=== PATIENT | male | born 1980 | race Caucasian/White ===

== ENCOUNTER → 2021-06-22 10:40 | Outpatient (BNVA) | payer MEDICAID, SELFPAY | PROVIDERS: Visit Provider Nurse Practitioner Family | DX: G62.9 Polyneuropathy, unspecified (principal) | CPT/HCPCS: 80053; 85025 ==

== ENCOUNTER → 2021-08-24 14:39 | Outpatient (BNVA) | payer MEDICAID, SELFPAY | PROVIDERS: Visit Provider Nurse Practitioner Family | DX: M79.602 Pain in left arm (principal); M79.89 Other specified soft tissue disorders; Z98.890 Other specified postprocedural states | CPT/HCPCS: 73090; 73110 ==

== ENCOUNTER 2021-09-22 16:15 | Emergency (ER) | payer MEDICAID, SELFPAY ==
[2021-09-22 16:31] VITALS: BP 168/104; PULSE 91; RESP 18; TEMP 36.4; O2SAT 99; BMI 29.8
--- NOTE | 2021-09-22 17:09 | W.ED.HA ---
HPI - Headache General: Chief Complaint: Headache Stated Complaint: Headache with dizziness Time Seen by Provider: 09/22/21 16:51 Source: patient and family (spouse) Mode of arrival: ambulatory Limitations: no limitations History of Present Illness: This patient presents to our emergency department [place] by his spouse. He states he has had a migraine headache now for over 2 days. He states the headache came on in a gradual fashion and has built over many hours and has persisted. He states he has tried [id number] migraine medicines without much improvement. He states he has had vomiting today with this headache. He states that he has had a history of migraine headaches in the past but has not had one for some time. He states that again it did not come on suddenly but gradually built over hours. He denies any numbness, weakness, change in vision, difficulty with speech, sensation or movement. He denies head trauma. He denies fevers. He states that he does not have any known migraine triggers in the past. He has a history of seasonal allergies and takes antihistamine for that condition. He does not smoke tobacco and rarely drinks alcohol. No ongoing associated symptoms at this time. He states he is otherwise in good health has not had recent upper respiratory infections, fevers, etc. MD elicited complaint: headache and migraine Pertinent past history: migraines Onset description: gradually Location: frontal, temporal and band-like Severity: similar to previous episodes Quality & Timing: throbbing and squeezing Context: occurred at rest Associated symptoms: Reports photophobia and vomiting; Deny chest pain, confusion, fever(s) or rash Treatments prior to arrival: ibuprofen Review of Systems Const: Denies: fever(s), chills or body aches Eyes: Reports: photophobia; Denies: change in vision, blurry vision or seeing flashes ENMT: Reports: nasal congestion; Denies: throat pain, odynophagia, hoarseness, change in hearing, disequilibrium or nasal obstruction Card: Denies: chest pain, palpitations or irregular heart rhythm Resp: Denies: dyspnea or productive cough GI: Reports: vomiting; Denies: abdominal pain or dysphagia : Denies: flank pain, difficulty urinating, dysuria or urinary frequency Musc: Denies: neck pain, back pain, extremity pain or extremity swelling Skin/Breast: Denies: rash Neuro: Reports: headache(s); Denies: numbness in extremities, weakness in extremities, frequent falls, dizziness, confusion, Slurred speech present or seizure-like activity Psych: Denies: anxiety, depression, mood swings or panic attacks Endo: Denies: polyuria or polydipsia Thai/Lymph: Denies: easy bruising or easy bleeding All/Imm: Denies: urticaria PFSH ED PFSH: Social History Smoking and tobacco status: never smoked Physical Exam Narrative: EXAM NARRATIVE: Patient is alert but appears somewhat uncomfortable. He is sitting in a darkened room he is able to communicate in full sentences which are goal-directed. Const: COMMON NORMALS: patient oriented x3 and alert GENERAL APPEARANCE: cooperative HENMT: COMMON NORMALS: normocephalic, atraumatic, TM's normal bilaterally, Normal external nose present, Normal nasal mucous membranes and turbinates present, moist oral mucous membranes, oropharynx normal and dentition normal HEAD & SCALP: normocephalic and atraumatic; no scalp tenderness and no Temporal artery tenderness present FACE & SINUS: sinuses nontender and face symmetric NOSE: Normal external nose present and Normal nasal mucous membranes and turbinates present TYMPANIC MEMBRANE: TM's normal bilaterally Eye: COMMON NORMALS: Equal, round and reactive pupils present, EOMs intact bilaterally, conjunctivae normal and no scleral icterus CONJUNCTIVA: Yes conjunctivae normal PUPIL: Yes Equal, round and reactive pupils present DIRECT OPHTHALMOSCOPY: Yes photophobia Neck/C-Spine: COMMON NORMALS: full ROM, no lymphadenopathy, supple, no meningeal signs, no JVD and No carotid bruits Lymph: LYMPHATIC: no lymphadenopathy noted Chest: COMMONS NORMALS: normal inspection of the chest Resp: COMMON NORMALS: normal respiratory effort and clear to auscultation bilaterally AUSCULTATION: clear to auscultation bilaterally Cardio: COMMON NORMALS: no JVD, regular rate, regular rhythm, No murmurs present (Cardio) and Peripheral pulses 2+ throughout RATE: regular rate RHYTHM: regular rhythm PERIPHERAL PULSES: Peripheral pulses 2+ throughout GI: COMMON NORMALS: Normal to inspection, nondistended, normoactive bowel sounds present : COMMON NORMALS: Yes no CVA tenderness BLADDER/KIDNEY EXAM: Yes no CVA tenderness Back/Pelvis: COMMON NORMALS: no CVA tenderness, thoracic and lumbar spine normal to inspection, no thoracic nor lumbar tenderness, thoraco-lumbar ROM normal and straight leg raise negative bilaterally Extremity: COMMON NORMALS: normal to inspection, full ROM, capillary refill normal, no joint enlargement, no calf tenderness and no pedal edema Neuro: COMMON NORMALS: patient oriented x3, moves all extremities, no focal motor deficits, no sensory deficits noted and gait normal SENSORIUM/ORIENTATION: Yes alert MENINGEAL SIGNS: Yes no meningeal signs CRANIAL NERVES: Yes CN normal except as noted Psych: COMMON NORMALS: mental status grossly normal and Normal thought process present THOUGHT PROCESS: Normal thought process present Skin: COMMON NORMALS: no rashes or lesions noted and turgor normal GENERAL SKIN EXAM: no rashes or lesions noted and turgor normal Course Reevaluation(s): Reevaluation #1: Patient states he has had no improvement with Reglan x2 as well as Benadryl and Decadron. He states that the last time he had a headache like this they went through several processes similar to this and wound up giving him analgesics. Looking at his medication list is somewhat revealing. Vital Signs: Vital signs: Vital Signs Temperature 97.6 F 09/22/21 16:31 Pulse Rate 84 09/22/21 19:00 Respiratory Rate 16 09/22/21 19:00 Blood Pressure 170/83 09/22/21 19:00 Pulse Oximetry 95 09/22/21 19:00 [facility] - Headache Medical Decision Making Patient here with migraine headache. His clinical picture and examination do not suggest a worrisome secondary headache. He got minimal if any relief from the usual treatment for migraines. We were had to resort to giving him opiates which I am not in favor. We will go ahead and plan on discharge to home. I will provide a prescription for tizanidine to use for continued treatment. Again he is stable without any findings to suggest worrisome etiology to his headache at this time. Return precautions were discussed. Discharge Plan Discharge Patient Disposition: Home Clinical Impression: Headache Condition: Stable Prescriptions: New tizanidine 4 mg tablet 4 mg PO Q12H PRN (Reason: headache) Qty: 14 0RF No Action sulfamethoxazole-trimethoprim [Bactrim DS] 800-160 mg tablet 1 tab PO BID 10 Days Qty: 20 0RF gabapentin 100 mg capsule 100 mg PO TID 30 Days Qty: 90 0RF Narcan 4 mg/actuation spray,non-aerosol 4 mg intranasal Q2M PRN (Reason: opioid overdose) Qty: 2 0RF Rx Instructions: spray 1 dose into ONE nostril; alternate nostrils w each dose until help arrives hydrocodone-acetaminophen 5-325 mg tablet 1 tab PO TID PRN (Reason: pain) 7 Days Qty: 21 0RF Discharge Orders: Discharge ED (Routine); Ordered 09/22/21 Ordered By: Ventura Marlow Discharge Diet: Usual diet Discharge Activity: Resume usual activity Patient Instructions: Opioid Safety Activity Restrictions/Additional Instructions: We have provided prescription that she may use should you have any recurrence of your headache. Take 1 to 2 tablets at bedtime as needed for your headache. Follow-up with your regular doctor for additional medications or alternative treatments as indicated. Should you have persistent, new or worsening symptoms return to this or the nearest emergency department. 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
[2021-09-22] MEDS: metoclopramide 5 mg/mL SDV 2 mL 10 MG IVP ×2 (17:24→18:08)
[2021-09-22] MEDS: dexamethasone 10 mg/mL INJ IVP (17:24)
[2021-09-22] MEDS: diphenhydrAMINE 50 mg/mL SDV 1mL 25 MG IVP (17:25)
[2021-09-22] MEDS: sodium chloride 0.9% 1,000 ML 999 ML IV (17:26)
[2021-09-22] MEDS: HYDROmorphone 1 mg/mL INJ 1 mL IVP ×2 (18:59→19:31)
[2021-09-22 19:00] VITALS: BP 170/83; PULSE 84; RESP 16; O2SAT 95
[2021-09-22 19:31] VITALS: BP 143/78; PULSE 78; RESP 16; O2SAT 95
== END 2021-09-22 19:43 | disposition home or self-care (01) ==
PROVIDERS: Emergency Provider Emergency Medicine
DX: R51.9 Headache, unspecified (principal)
CPT/HCPCS: 96361; 96374; 96375; 96376; 99284; J1100; J1170; J1200; J2765; J7030

== ENCOUNTER 2022-01-13 15:44 | Emergency (ER) | payer MEDICAID, SELFPAY ==
[2022-01-13 15:49] VITALS: BP 152/109; PULSE 77; RESP 18; TEMP 36.7; O2SAT 98
--- NOTE | 2022-01-13 16:29 | ED_ITS ---
HPI - Headache General: Chief Complaint: Headache Stated Complaint: Headache Time Seen by Provider: 01/13/22 16:10 Source: patient Mode of arrival: ambulatory Limitations: no limitations History of Present Illness: 41-year-old male who states he had a headache that started yesterday morning. He states that pain is sharp in nature rates an 8 out of 10. He states he had previous headaches that were the same as this denies this being the worst headache of his life states that gradually worsening it was not a sudden onset headache denies any fever denies any worsening improving factors. Associated symptoms: Deny chest pain, fever(s), nausea, rash or vomiting Review of Systems Const: Denies: fever(s), chills, body aches or change in appetite Eyes: Denies: blurry vision or eye discomfort ENMT: Denies: throat pain or dental pain Card: Denies: chest pain Resp: Denies: dyspnea GI: Denies: abdominal pain, nausea, vomiting or diarrhea : Denies: dysuria Musc: Denies: neck pain or back pain Skin/Breast: Denies: rash Neuro: Reports: headache(s) Psych: Denies: depression Thai/Lymph: Denies: easy bruising All/Imm: Denies: urticaria PFSH ED PFSH: Surgical History (Updated 01/13/22 @ 16:34 by Elena Wiggins MD) History of carpal tunnel surgery of left wrist Social History Smoking and tobacco status: never smoked Physical Exam Const: COMMON NORMALS: no acute distress, patient oriented x3 and healthy appearing HENMT: COMMON NORMALS: normocephalic and atraumatic HEAD & SCALP: normocephalic and atraumatic Eye: COMMON NORMALS: Equal, round and reactive pupils present and EOMs intact bilaterally PUPIL: Yes Equal, round and reactive pupils present Neck/C-Spine: COMMON NORMALS: full ROM and supple Chest: COMMONS NORMALS: normal inspection of the chest and normal palpation of entire chest wall Resp: COMMON NORMALS: normal respiratory effort, No retractions, No use of a ccessory muscles and clear to auscultation bilaterally AUSCULTATION: clear to auscultation bilaterally Cardio: COMMON NORMALS: regular rate, regular rhythm and No murmurs present (Cardio) RATE: regular rate RHYTHM: regular rhythm GI: COMMON NORMALS: Normal to inspection, nondistended, normoactive bowel sounds present, Soft to palpation, non-tender and no masses PALPATION: Yes Soft to palpation Extremity: COMMON NORMALS: normal to inspection and full ROM Neuro: COMMON NORMALS: patient oriented x3, moves all extremities and no focal motor deficits Psych: COMMON NORMALS: mental status grossly normal, Normal thought process present and cooperative THOUGHT PROCESS: Normal thought process present Skin: COMMON NORMALS: no rashes or lesions noted and no wounds GENERAL SKIN EXAM: no rashes or lesions noted Course Vital Signs: Vital signs: Vital Signs Temperature 98.0 F 01/13/22 15:49 Pulse Rate 77 01/13/22 15:49 Respiratory Rate 18 01/13/22 15:49 Blood Pressure 152/109 01/13/22 15:49 Pulse Oximetry 98 01/13/22 15:49 MDM - Headache Medical Decision Making Patient presents here with a headache that is consistent with his previous headaches she has no signs of subarachnoid hemorrhage or meningitis patient was given IM morphine Reglan Benadryl stable for discharge is to follow-up with PCP and return if worsening. Discharge Plan Discharge Patient Disposition: Home Clinical Impression: Headache Qualifiers: Headache type: unspecified Headache chronicity pattern: unspecified pattern Intractability: not intractable Qualified Code(s): R51.9 - Headache, unspecified Condition: Stable Prescriptions: No Action atorvastatin 20 mg tablet 20 mg PO DAILY 0RF ondansetron 4 mg tablet,disintegrating 4 mg PO Q6H PRN (Reason: nausea and vomiting) Qty: 20 0RF Narcan 4 mg/actuation spray,non-aerosol 4 mg intranasal Q2M PRN (Reason: opioid overdose) Qty: 2 0RF Rx Instructions: spray 1 dose into ONE nostril; alternate nostrils w each dose until help arrives Discharge Orders: Discharge ED (Routine); Ordered 01/13/22 Ordered By: Elena Wiggins Discharge Diet: Advance as tolerated Discharge Activity: Resume usual activity Patient Instructions: Migraine Headache (ED) 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
[2022-01-13] MEDS: metoclopramide 5 mg/mL SDV 2 mL 10 MG IM (16:46)
[2022-01-13] MEDS: diphenhydrAMINE 50 mg/mL SDV 1mL IM (16:46)
[2022-01-13] MEDS: morphine 4 mg/mL SDV 1 mL IM (16:47)
== END 2022-01-13 16:47 | disposition home or self-care (01) ==
PROVIDERS: Emergency Provider Emergency Medicine
DX: R51.9 Headache, unspecified (principal)
CPT/HCPCS: 96372; 99284; J1200; J2270; J2765

== ENCOUNTER 2022-03-28 14:10 | Emergency (ER) | payer MEDICAID, SELFPAY ==
[2022-03-28] VITALS (8 sets, daily range): BP systolic 130–179; BP diastolic 95–118; PULSE 78–103; RESP 14–20; TEMP 36.4; O2SAT 95–100; BMI 27.8
--- NOTE | 2022-03-28 14:19 | ECG_ITS ---
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 Measurements Intervals [place] Rate: 87 P: 40 MD: 163 QRS: 15 QRSD: 89 T: 52 QT: 361 QTc: 436 Interpretive Statements SINUS RHYTHM POSSIBLE LEFT ATRIAL ENLARGEMENT [-0.1mV P-WAVE IN V1/V2] LOW QRS VOLTAGE IN PRECORDIAL LEADS [QRS DEFLECTION < 1.0 mV IN CHEST LEADS] SEPTAL MYOCARDIAL INFARCTION , PROBABLY OLD [40+ ms Q WAVE IN V1/V2] No previous ECG available for comparison Electronically Signed On 03-28-2022 20:45:23 CDT by Cary Smith M.D. [id number]
--- NOTE | 2022-03-28 14:29 | XR_ITS ---
WS: [id number] Portable AP upright chest, 03/28/2022 Clinical Data: cp Comparison: Portable chest, 07/25/2007. Findings: No nodules, masses or effusions are seen. The heart is normal. The pulmonary vascularity is not increased. No pneumonia or pneumothorax is seen. Monitor leads are on the chest wall. XR/XR chest 1V portable [id number] Impression: Negative chest.
[2022-03-28 14:46] LABS: Basophils # 0.1 10^3/uL (0.0-0.1); Basophils % 1.7 %; Eosinophils # 1.1 10^3/uL (0.0-0.8); Hematocrit 49.8 % (42.0-52.0); Hemoglobin 17.1 g/dL (11.7-16.6); Lymphocytes # 1.6 10^3/uL (0.8-4.8); Lymphocytes % 25.1 %; Mean Corpuscular HGB Conc 34.3 g/dL (30.0-36.0); Mean Corpuscular Hemoglobin 29.6 pg (28.0-34.0); Mean Corpuscular Volume 86.3 fl (80-94); Monocytes # 0.5 10^3/uL (0.2-0.9); Monocytes % 7.5 %; Neutrophils % 48.2 %; Nucleated Red Blood Cells % 0 %; Platelet Count 395 10^3/cmm (130-400); Red Blood Count 5.77 10^6/uL (4.1-5.3); Red Cell Distribution Width 13.2 % (12.1-15.1); White Blood Count 6.4 10^3/uL (4.0-10.0)
--- NOTE | 2022-03-28 14:46 | ED_ITS ---
HPI - Chest Pain General: Chief Complaint: Chest Pain Stated Complaint: chest/right side pain Time Seen by Provider: 03/28/22 14:28 Source: patient Mode of arrival: ambulatory Limitations: no limitations History of Present Illness: 41-year-old male states he been having chest pain over the last 2 to 3 hours states she had a pressure type pain in the center of his chest with some nausea states he had some numbness down his left arm. History of high blood pressure and high cholesterol he is not a smoker denies any known history of heart disease he does have family history of disease states his pain is currently 3 out of 10 denies any worsening improving factors. Associated symptoms: Deny abdominal pain, dyspnea, fever(s), nausea or vomiting Review of Systems Const: Denies: fever(s), chills, body aches or change in appetite Eyes: Denies: blurry vision or eye discomfort ENMT: Denies: throat pain or dental pain Card: Reports: chest pain Resp: Denies: dyspnea GI: Denies: abdominal pain, nausea, vomiting or diarrhea : Denies: dysuria Musc: Denies: neck pain or back pain Skin/Breast: Denies: rash Neuro: Denies: headache(s) Psych: Denies: depression Thai/Lymph: Denies: easy bruising All/Imm: Denies: urticaria PFSH ED PFSH: Surgical History History of carpal tunnel surgery of left wrist Social History Smoking and tobacco status: never smoked Physical Exam Const: COMMON NORMALS: no acute distress, patient oriented x3 and healthy appearing HENMT: COMMON NORMALS: normocephalic and atraumatic HEAD & SCALP: normocephalic and atraumatic Eye: COMMON NORMALS: Equal, round and reactive pupils present and EOMs intact bilaterally PUPIL: Yes Equal, round and reactive pupils present Neck/C-Spine: COMMON NORMALS: full ROM and supple Chest: COMMONS NORMALS: normal inspection of the chest and normal palpation of entire chest wall Resp: COMMON NORMALS: normal respiratory effort, No retractions, No use of accessory muscles and clear to auscultation bilaterally AUSCULTATION: clear to auscultation bilaterally Cardio: COMMON NORMALS: regular rate, regular rhythm and No murmurs present (Cardio) RATE: regular rate RHYTHM: regular rhythm GI: COMMON NORMALS: Normal to inspection, nondistended, normoactive bowel sounds present, Soft to palpation, non-tender and no masses PALPATION: Yes Soft to palpation Extremity: COMMON NORMALS: normal to inspection and full ROM Neuro: COMMON NORMALS: patient oriented x3, moves all extremities and no focal motor deficits Psych: COMMON NORMALS: mental status grossly normal, Normal thought process present and cooperative THOUGHT PROCESS: Normal thought process present Skin: COMMON NORMALS: no rashes or lesions noted and no wounds GENERAL SKIN EXAM: no rashes or lesions noted Course Vital Signs: Vital signs: Vital Signs Temperature 97.6 F 03/28/22 14:11 Pulse Rate 86 03/28/22 18:00 Respiratory Rate 18 03/28/22 18:16 Blood Pressure 157/97 03/28/22 18:00 Pulse Oximetry 98 03/28/22 18:16 Oxygen Delivery Me thod 03/28/22 18:00 MDM - Chest Pain Medical Decision Making Patient presents for chest pain his initial and repeat troponins here are normal. He is well-appearing here no signs of acute coronary syndrome no signs of dissection or pulmonary embolism he is stable for discharge we will get him follow-up with cardiology he is return if worsening he understands agrees to plan. Lab Data : 03/28/22 11:40 03/28/22 11:40 Radiology Impressions Chest X-Ray 03/28/22 14:29 Impression: Negative chest. Laboratory Results WBC 6.4 10^3/uL (4.0-10.0) 03/28/22 11:40 RBC 5.77 10^6/uL (4.1-5.3) H 03/28/22 11:40 Hgb 17.1 g/dL (11.7-16.6) H 03/28/22 11:40 Hct 49.8 % (42.0-52.0) 03/28/22 11:40 MCV 86.3 fl (80-94) 03/28/22 11:40 MCH 29.6 pg (28.0-34.0) 03/28/22 11:40 MCHC 34.3 g/dL (30.0-36.0) 03/28/22 11:40 RDW 13.2 % (12.1-15.1) 03/28/22 11:40 Plt Count 395 10^3/cmm (130-400) 03/28/22 11:40 MPV 9.0 fL (7.4-10.4) 03/28/22 11:40 Neut % (Auto) 48.2 % 03/28/22 11:40 Lymph % (Auto) 25.1 % 03/28/22 11:40 [place] % (Auto) 7.5 % 03/28/22 11:40 Eos % (Auto) 17.0 % 03/28/22 11:40 Baso % (Auto) 1.7 % 03/28/22 11:40 Neut # (Auto) 3.10 10^3/uL (1.8-7.7) 03/28/22 11:40 Lymph # (Auto) 1.6 10^3/uL (0.8-4.8) 03/28/22 11:40 [place] # (Auto) 0.5 10^3/uL (0.2-0.9) 03/28/22 11:40 Eos # (Auto) 1.1 10^3/uL (0.0-0.8) H 03/28/22 11:40 Baso # (Auto) 0.1 10^3/uL (0.0-0.1) 03/28/22 11:40 Nucleated RBC % (auto) 0 % 03/28/22 11:40 Nucleated RBCs # 0.0 /100WBC 03/28/22 11:40 Sodium 134 mmol/L (136-145) L 03/28/22 11:40 Potassium 4.7 mmol/L (3.5-5.1) 03/28/22 11:40 Chloride 100 mmol/L (98-107) 03/28/22 11:40 Carbon Dioxide 24 mmol/L (22-29) 03/28/22 11:40 Anion Gap 14.7 (5-19) 03/28/22 11:40 BUN 12 mg/dL (6-20) 03/28/22 11:40 Creatinine 1.0 mg/dL (0.7-1.2) 03/28/22 11:40 GFR Calculation 82.8 mL/min (90-130) L 03/28/22 11:40 Glucose 125 mg/dL (65-115) H 03/28/22 11:40 Calculated Osmolality 279 mOsm/kg (285-295) L 03/28/22 11:40 Calcium 9.4 mg/dL (8.5-10.5) 03/28/22 11:40 Total Bilirubin 0.2 mg/dL (0.15-1.2) 03/28/22 11:40 AST 24 U/L (0-40) 03/28/22 11:40 ALT 52 U/L (0-41) H 03/28/22 11:40 Alkaline Phosphatase 109 U/L (40-130) 03/28/22 11:40 Troponin T Baseline 10 ng/L (0-15) 03/28/22 11:40 Troponin T 120 Minute 6.00 ng/L (0-15) 03/28/22 17:19 Delta Troponin T -4.00 ABS# (0-10) L 03/28/22 17:19 Total Protein 7.4 g/dL (6.6-8.7) 03/28/22 11:40 Albumin 4.4 g/dL (3.5-5.2) 03/28/22 11:40 Globulin 3.0 g/dL (1.3-4.6) 03/28/22 11:40 Lipase 59 U/L (13-60) 03/28/22 11:40 EKG Data EKG 1: I personally reviewed and interpreted this EKG as follows: EKG interpretation date: 03/28/22 EKG interpretation time: 14:21 Interpretation: nsr with no st or t wave abnormalities qrs 89 qtc 406 EKG 2: I personally reviewed and interpreted this EKG as follows: EKG interpretation date: 03/28/22 EKG interpretation time: 14:56 Interpretation: nsr hr [address] or t wave abnormalities qrs 91 qtc 405 Discharge Plan Discharge Patient Disposition: Home Clinical Impression: Chest pain Condition: Stable Prescriptions: New hydrocodone-acetaminophen 5-325 mg tablet 1 tab PO Q6H PRN (Reason: pain) Qty: 14 0RF ondansetron 4 mg tablet,disintegrating 4 mg PO Q6H PRN (Reason: nausea and vomiting) Qty: 14 0RF No Action Narcan 4 mg/actuation spray,non-aerosol 4 mg intranasal Q2M PRN (Reason: opioid overdose) Qty: 2 0RF Rx Instructions: spray 1 dose into ONE nostril; alternate nostrils w each dose until help arrives atorvastatin 40 mg tablet 40 mg PO BEDTIME valsartan 160 mg tablet 160 mg PO DAILY Discharge Orders: Discharge ED (Routine); Ordered 03/28/22 Ordered By: Elena Wiggins Referrals: Jerri Schneider MD [Physician] - 1-3 days Discharge Diet: Advance as tolerated Discharge Activity: Resume usual activity Patient Instructions: Chest Pain (ED) Coding Level 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
[2022-03-28] MEDS: aspirin 81 mg Chew Tablet 324 MG PO (14:51)
[2022-03-28] MEDS: nitroglycerin 0.4 mg sublingual Tablet SUBLINGUAL (14:51)
--- NOTE | 2022-03-28 14:56 | ECG_ITS ---
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 Measurements Intervals [place] Rate: 93 P: 68 AR: 166 QRS: 92 QRSD: 91 T: 55 QT: 354 QTc: 441 Interpretive Statements SINUS RHYTHM BORDERLINE RIGHT AXIS DEVIATION [QRS AXIS > 90] SEPTAL MYOCARDIAL INFARCTION , OF INDETERMINATE AGE [40+ ms Q WAVE IN V1/V2] INTERPRETATION BASED ON A DEFAULT AGE OF 40 YEARS Compared to ECG 03/28/2022 14:21:43 No significant changes Electronically Signed On 03-28-2022 20:50:13 CDT by Cary Smith M.D. [id number]
[2022-03-28 15:10] LABS: Troponin(5th) Baseline 10 ng/L (0-15)
[2022-03-28 15:11] LABS: Alanine Aminotransferase 52 U/L (0-41); Albumin Level 4.4 g/dL (3.5-5.2); Alkaline Phosphatase 109 U/L (40-130); Anion Gap 14.7 (5-19); Aspartate Amino Transferase 24 U/L (0-40); Blood Urea Nitrogen 12 mg/dL (6-20); Calcium 9.4 mg/dL (8.5-10.5); Carbon Dioxide 24 mmol/L (22-29); Chloride 100 mmol/L (98-107); Creatinine Clr Calc Pharmacy 116.3256; Glomerular Filtration Rate 82.8 mL/min (90-130); Glucose 125 mg/dL (65-115); Osmolality Calculated 279 mOsm/kg (285-295); Potassium 4.7 mmol/L (3.5-5.1); Sodium 134 mmol/L (136-145); Total Bilirubin 0.2 mg/dL (0.15-1.2); Total Protein 7.4 g/dL (6.6-8.7)
[2022-03-28] MEDS: ondansetron 2 mg/ML SDV 2 mL 4 MG IVP (16:04)
[2022-03-28] MEDS: HYDROmorphone 1 mg/mL INJ 1 mL 0.5 MG IVP ×2 (16:07→18:16)
[2022-03-28 16:08] LABS: Lipase 59 U/L (13-60)
--- NOTE | 2022-03-28 17:17 | PC.NURSE ---
pt inquired if okay to eat, family brought outside food in. per physician, okay for pt to eat
--- NOTE | 2022-03-28 20:29 | ECG_ITS ---
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 Measurements Intervals [place] Rate: 85 P: 37 MN: 164 QRS: 40 QRSD: 102 T: 32 QT: 378 QTc: 450 Interpretive Statements SINUS RHYTHM POSSIBLE LEFT ATRIAL ENLARGEMENT [-0.1mV P-WAVE IN V1/V2] SEPTAL MYOCARDIAL INFARCTION , OF INDETERMINATE AGE [40+ ms Q WAVE IN V1/V2] Compared to ECG 03/28/2022 14:56:13 No significant changes Electronically Signed On 03-28-2022 20:50:40 CDT by Cary Smith M.D. [id number]
--- NOTE | 2022-03-29 09:57 | DCPLANNER ---
Addendum entered by Annmarie Madrid 06/27/22 10:42: Patient had a follow up appointment scheduled with heart care - patient did not attend appointment. Addendum entered by Annmarie Madrid 03/29/22 11:34: Patient has a follow up appointment scheduled for Friday, June 03, 2022 at 2:[address] Smith at [facility]. Clinic will call patient with appointment information. Original Note: atm manager had message to schedule a follow up appointment for patient with cardiology. atm manager sent patients information to the front office staff at [facility]. Patients information will be printed and reviewed. Clinic will call patient with appointment information.
== END 2022-03-28 16:25 | disposition home or self-care (01) ==
PROVIDERS: Emergency Provider Emergency Medicine
DX: R07.9 Chest pain, unspecified (principal)
CPT/HCPCS: 36415; 71045; 80053; 83690; 84484; 85025; 93005; 96374; 96375; 96376; 99285; J1170; J2405

== ENCOUNTER 2022-07-03 15:14 | Emergency (ER) | payer OTHER, SELFPAY ==
[2022-07-03 15:22] VITALS: BP 199/109; PULSE 90; RESP 16; TEMP 36.7; O2SAT 94; BMI 29.1
[2022-07-03 15:35] VITALS: BP 182/117; PULSE 97; RESP 16; O2SAT 97
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
[2022-07-03 16:19] VITALS: RESP 16
[2022-07-03] MEDS: ondansetron 2 mg/ML SDV 2 mL 4 MG IVP (16:19)
[2022-07-03] MEDS: morphine 4 mg/mL SDV 1 mL IVP ×2 (16:19→18:00)
[2022-07-03 16:43] VITALS: BP 172/78; PULSE 97; RESP 14; O2SAT 95
[2022-07-03 18:00] VITALS: RESP 16; O2SAT 95
== END 2022-07-03 18:46 | disposition home or self-care (01) ==
PROVIDERS: Emergency Provider Emergency Medicine; PCP Family Medicine
DX: S13.4XXA Sprain of ligaments of cervical spine, initial encounter (principal); S16.1XXA Strain of muscle, fascia and tendon at neck level, initial encounter; S29.012A Strain of muscle and tendon of back wall of thorax, initial encounter; I10 Essential (primary) hypertension; V89.2XXA Person injured in unspecified motor-vehicle accident, traffic, initial encounter
CPT/HCPCS: 70450; 72125; 72128; 96374; 96375; 96376; 99285; J2270; J2405

== ENCOUNTER 2022-11-25 12:06 | Emergency (ER) | payer OTHER, SELFPAY ==
[2022-11-25 12:07] VITALS: PULSE 113; RESP 16; TEMP 36.8; O2SAT 98; BMI 29.1
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
--- NOTE | 2022-11-25 12:17 | CT_ITS ---
WS: [id number] CT ABDOMEN PELVIS TECHNIQUE: Contrast-enhanced CT of the abdomen and pelvis with coronal and sagittal reformatted image s. CLINICAL INFORMATION: abd pain COMPARISON: None. DLP: 674.[address] scans at [facility] use at least one of these dose optimization techniques: automated e xposure control; mA and/or kV adjustment per patient size (includes targeted exams where dose is matc hed to clinical indication); or iterative reconstruction. FINDINGS: Lung bases are well aerated. Small noncalcified nodule RIGHT lower lobe laterally measuring 5 mm. Sli ght bibasilar atelectasis. Diffuse fatty infiltration of the liver. Prior cholecystectomy. Mild hepatomegaly. Normal GE junction . Spleen. Normal caliber abdominal aorta. No free fluid in the pelvis. Urine distended bladder. Adren al glands are normal. No hydronephrosis in either kidney. Normal pancreatic parenchymal enhancement. Normal portal vein and splenic vein. Normal sigmoid colon. Prior appendectomy clips. Normal lumbar spine. CT/CT abdomen pelvis w con* [id number] IMPRESSION: No acute traumatic findings abdomen or pelvis
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
--- NOTE | 2022-11-25 12:20 | CT_ITS ---
WS: [id number] CT CERVICAL TRAUMA TECHNIQUE: Noncontrast CT of the cervical spine with coronal and sagittal reformatted images. CLINICAL INFORMATION: Trauma COMPARISON: None. DLP: 1414.[address] scans at [facility] use at least one of these dose optimization techniques: automated e xposure control; mA and/or kV adjustment per patient size (includes targeted exams where dose is matc hed to clinical indication); or iterative reconstruction. FINDINGS: Straightening of the normal cervical lordosis. Mild cervical curve. Disc space narrowing worse at C6- C7 with anterior hypertrophic changes. Normal craniocervical junction. Normal C1-C2 articulation. Den s is normal in appearance. Normal occipital condyles. No high-grade spinal canal narrowing. Normal C1 ring. No evidence of acute fracture or dislocation. Normal prevertebral soft tissues. Mastoids air cells are well aerated. CT/CT cervical spin wo con* [id number] IMPRESSION: No evidence of acute fracture or dislocation.
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
[2022-11-25 12:30] VITALS: BP 136/81; PULSE 111; RESP 16; O2SAT 98
[2022-11-25] MEDS: sodium chloride 0.9% 1,000 ML 999 ML IV (12:31)
--- NOTE | 2022-11-25 12:33 | ECG_ITS ---
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 Measurements Intervals [place] Rate: 105 P: 48 IN: 152 QRS: 50 QRSD: 81 T: 52 QT: 325 QTc: 430 Interpretive Statements SINUS TACHYCARDIA SEPTAL MYOCARDIAL INFARCTION , OF INDETERMINATE AGE [40+ ms Q WAVE IN V1/V2] Compared to ECG 03/28/2022 18:04:47 Sinus rhythm no longer present Myocardial infarct finding still present Electronically Signed On 11-25-2022 16:27:49 CDT by Merlin Marc M.D. [id number]
--- NOTE | 2022-11-25 12:37 | PC.NURSE ---
PT PLACED IN C COLLAR
--- NOTE | 2022-11-25 12:37 | PC.NURSE ---
NO STEP OFF PALPATED.
[2022-11-25 13:02] LABS: Basophils # 0.1 10^3/uL (0.0-0.1); Basophils % 1.4 %; Eosinophils # 0.6 10^3/uL (0.0-0.8); Eosinophils % 6.5 %; Hematocrit 52.4 % (42.0-52.0); Lymphocytes # 1.6 10^3/uL (0.8-4.8); Lymphocytes % 18.8 %; Mean Corpuscular HGB Conc 34.4 g/dL (30.0-36.0); Mean Corpuscular Hemoglobin 29.2 pg (28.0-34.0); Mean Corpuscular Volume 84.9 fl (80-94); Mean Platelet Volume 9.3 fL (7.4-10.4); Monocytes # 0.7 10^3/uL (0.2-0.9); Monocytes % 7.9 %; Neutrophils # 5.48 10^3/uL (1.8-7.7); Nucleated Red Blood Cells % 0 %; Platelet Count 526 10^3/cmm (130-400); Red Blood Count 6.17 10^6/uL (4.1-5.3); Red Cell Distribution Width 12.8 % (12.1-15.1); White Blood Count 8.4 10^3/uL (4.0-10.0)
[2022-11-25] MEDS: iohexol 350 mg/mL 500 mL Btl (per mL) IV (13:12)
[2022-11-25 13:25] LABS: Alanine Aminotransferase 44 U/L (0-41); Alkaline Phosphatase 109 U/L (40-130); Anion Gap 20.3 (5-19); Aspartate Amino Transferase 32 U/L (0-40); Blood Urea Nitrogen 13 mg/dL (6-20); Calcium 10.4 mg/dL (8.5-10.5); Carbon Dioxide 22 mmol/L (22-29); Chloride 102 mmol/L (98-107); Globulin 3.2 g/dL (1.3-4.6); Glomerular Filtration Rate 55.8 mL/min (90-130); Glucose 121 mg/dL (65-115); Lipase 37 U/L (13-60); Osmolality Calculated 291 mOsm/kg (285-295); Potassium 4.3 mmol/L (3.5-5.1); Sodium 140 mmol/L (136-145); Total Bilirubin 0.5 mg/dL (0.15-1.2); Total Protein 8.2 g/dL (6.6-8.7)
[2022-11-25] MEDS: acetaminophen 500 mg Tablet 1000 MG PO (13:43)
[2022-11-25 13:45] VITALS: BP 147/103; PULSE 86; RESP 18; O2SAT 98
[2022-11-25 14:07] LABS: Add Urine Microscopic? NO; Charge for UA Resulting for Rev
[2022-11-25 14:11] LABS: Bilirubin Urine Neg (Negative); Blood Urine Neg (Negative); Glucose Urine UA Norm (Normal); Ketones Urine Negative (Negative); Leukocyte Esterase Urine Negative (Negative); Nitrate Urine Negative (Negative); Protein Urine Neg (Negative); Specific Gravity, Urine 1.005 (1.005-1.030); Urine Appearance Clear (CLEAR); Urine Color Yellow (Yellow); Urobilinogen Urine Norm (Negative); pH Urine 7 (5-7)
[2022-11-25 14:13] VITALS: BP 148/100; PULSE 92; RESP 16; O2SAT 99
== END 2022-11-25 14:14 | disposition home or self-care (01) ==
PROVIDERS: Emergency Provider Family Medicine; PCP Family Medicine
DX: Z04.1 Encounter for examination and observation following transport accident (principal); I10 Essential (primary) hypertension; V03.10XA Pedestrian on foot injured in collision with car, pick-up truck or van in traffic accident, initial encounter
CPT/HCPCS: 70450; 72125; 73562; 74177; 80053; 81003; 83690; 85025; 93005; 96360; 99285; J7030; Q9967

== ENCOUNTER → 2023-04-17 16:09 | Outpatient (BNVA) | payer SELFPAY | PROVIDERS: PCP Family Medicine; Visit Provider Emergency Medicine | DX: S69.91XA Unspecified injury of right wrist, hand and finger(s), initial encounter (principal); W29.3XXA Contact with powered garden and outdoor hand tools and machinery, initial encounter | CPT/HCPCS: 73130 ==

== ENCOUNTER → 2023-11-05 08:29 | Outpatient (BNVA) | payer SELFPAY | PROVIDERS: PCP Family Medicine; Visit Provider Family Medicine | DX: I10 Essential (primary) hypertension | CPT/HCPCS: 80053; 80061 ==

== ENCOUNTER 2023-11-11 13:52 | Emergency (ER) | payer SELFPAY ==
--- NOTE | 2023-11-11 13:52 | XRR_ITS ---
PROCEDURE INFORMATION: Exam: XR Chest Exam date and time: 11/11/2023 2:07 PM Age: 43 years old Clinical indication: Shortness of breath; Additional info: Cp TECHNIQUE: Imaging protocol: Radiologic exam of the chest. Views: 1 view. COMPARISON: CR XR chest 1V portable [id number] 03/28/2022 2:40 PM FINDINGS: Lungs: Unremarkable. No consolidation. Pleural spaces: Unremarkable. No pleural effusion. No pneumothorax. Heart/Mediastinum: Unremarkable. No cardiomegaly. Bones/joints: Unremarkable. XR/XR chest 1V portable [id number] IMPRESSION: No acute findings.
[2023-11-11 13:57] VITALS: BMI 29.8
--- NOTE | 2023-11-11 13:58 | ECG_ITS ---
[facility] Test Date: 2023-11-11 Pat Name: Delvin Thomas Department: Room: Gender: Male Assessment Consultant: : 1980 Requested By: Elena Wiggins Order Number: [id number] Lily MD: Cary Smith M.D. Measurements Intervals [place] Rate: 78 P: 54 [place]: 176 QRS: 63 QRSD: 80 T: 54 QT: 395 QTc: 450 Interpretive Statements SINUS RHYTHM POSSIBLE LEFT ATRIAL ENLARGEMENT [-0.1mV P-WAVE IN V1/V2] SEPTAL MYOCARDIAL INFARCTION , PROBABLY OLD [40+ ms Q WAVE IN V1/V2] Compared to ECG 11/25/2022 12:33:33 Sinus tachycardia no longer present Myocardial infarct finding still present Electronically Signed On 11-11-2023 22:58:48 CDT by Cary Smith M.D. [email or web address]/store/[id number] f
--- NOTE | 2023-11-11 14:00 | ED_ITS ---
HPI - Chest Pain 2 General: Chief Complaint: Chest Pain Stated Complaint: SOB/Left side chest pain Time Seen by Provider: 11/11/23 13:52 Source: patient and EMS Mode of arrival: ambulatory Limitations: no limitations History of Present Illness: 41-year-old male states he started havin g sudden very sharp left-sided chest pain that began roughly 1 to 2 hours ago. It is worse with movement along with palpation no history of heart disease. He has had some slight shortness of breath sharp pains go down his left arm. He denies any fever EMS stated they thought he was in A-fib seems to be in normal sinus rhythm here. They did give him aspirin nitro with no pain relief rates his pain a 10 currently Associated symptoms: Deny abdominal pain, dyspnea, fever(s), nausea or vomiting Review of Systems 2 Const: Denies: fever(s), chills, body aches or change in appetite ENMT: Denies: throat pain or dental pain Card: Reports: chest pain Resp: Denies: dyspnea GI: Denies: abdominal pain, nausea, vomiting or diarrhea Musc: Denies: neck pain or back pain Skin/Breast: Denies: rash Neuro: Denies: headache(s) PFSH ED 2 PFSH: Medical History Family history of early CAD father had mi at 38 Hypertension Surgical History History of carpal tunnel release of both wrists History of cholecystectomy History of appendectomy Family History Father Family history of premature coronary artery disease CAD (coronary artery disease) Diabetes Hypertension Mother Stroke Diabetes Hypertension Grandmother Dementia Denies family history of Chronic kidney disease (CKD) Social History Smoking and tobacco/nicotine status: never used tobacco/nicotine Alcohol intake: current Alcohol intake frequency: few times a month Substance/Drug Use: never Household members: spouse Marital status: Current occupational status: employed 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 Physical Exam 2 Const: COMMON NORMALS: no acute distress, patient oriented x3 and healthy appearing HENMT: COMMON NORMALS: normocephalic and atraumatic HEAD & SCALP: n ormocephalic and atraumatic Eye: COMMON NORMALS: conjunctivae normal CONJUNCTIVA: Yes conjunctivae normal Neck/C-Spine: COMMON NORMALS: full ROM and supple Chest: COMMONS NORMALS: normal inspection of the chest OTHER: left chest wall tenderness Resp: COMMON NORMALS: normal respiratory effort, No retractions, No use of accessory muscles and clear to auscultation bilaterally AUSCULTATION: clear to auscultation bilaterally Cardio: COMMON NORMALS: regular rate, regular rhythm and No murmurs present (Cardio) RATE: regular rate RHYTHM: regular rhythm GI: COMMON NORMALS: Normal to inspection, nondistended, normoactive bowel sounds present, Soft to palpation, non-tender and no masses PALPATION: Yes Soft to palpation Extremity: COMMON NORMALS: normal to inspection and full ROM Neuro: COMMON NORMALS: patient oriented x3, moves all extremities and no focal motor deficits Psych: COMMON NORMALS: mental status grossly normal, Normal thought process present and cooperative THOUGHT PROCESS: Normal thought process present Skin: COMMON NORMALS: no rashes or lesions noted and no wounds GENERAL SKIN EXAM: no rashes or lesions noted Course 2 Vital Signs: Vital signs: Vital Signs Temperature 98.2 F 11/11/23 14:05 Pulse Rate 66 11/11/23 16:33 Respiratory Rate 16 11/11/23 16:33 Blood Pressure 134/106 11/11/23 16:33 Pulse Oximetry 98 11/11/23 16:33 Oxygen Delivery Me thod Room Air 11/11/23 16:33 MDM - Chest Pain Medical Decision Making Patient presents for chest pain his initial D-dimer troponin EKG here wall but normal patient got upset was yelling at the nurse and signed out AGAINST MEDICAL ADVICE. He understand the risk and he does have medical decision-making capacity. Medical Records I reviewed the patient's medical records. Lab Data I reviewed the patient's lab results. 11/11/23 14:35 11/11/23 14:35 Radiology Impressions Chest X-Ray 11/11/23 13:52 IMPRESSION: No acute findings. Laboratory Results WBC 5.09 10^3/uL (3.29-11.43) 11/11/23 14:35 RBC 4.88 10^6/uL (3.85-5.65) 11/11/23 14:35 Hgb 14.60 g/dL (11.27-16.99) 11/11/23 14:35 Hct 42.5 % (37-53) 11/11/23 14:35 MCV 87.1 fl (82-101) 11/11/23 14:35 MCH 29.9 pg (27-33) 11/11/23 14:35 MCHC 34.4 g/dL (30-55) 11/11/23 14:35 RDW 13.0 % (12.1-15.1) 11/11/23 14:35 Plt Count 376 10^3/cmm (157-399) 11/11/23 14:35 MPV 9.1 fL (7.4-10.4) 11/11/23 14:35 Neut % (Auto) 52.8 % 11/11/23 14:35 Lymph % (Auto) 25.9 % 11/11/23 14:35 [place] % (Auto) 7.9 % 11/11/23 14:35 Eos % (Auto) 11.4 % 11/11/23 14:35 Baso % (Auto) 1.8 % 11/11/23 14:35 Neut # (Auto) 2.69 10^3/uL (1.8-7.7) 11/11/23 14:35 Lymph # (Auto) 1.3 10^3/uL (0.8-4.8) 11/11/23 14:35 [place] # (Auto) 0.4 10^3/uL (0.2-0.9) 11/11/23 14:35 Eos # (Auto) 0.6 10^3/uL (0.0-0.8) 11/11/23 14:35 Baso # (Auto) 0.1 10^3/uL (0.0-0.1) 11/11/23 14:35 Nucleated RBC % (auto) 0 % 11/11/23 14:35 Nucleated RBCs # 0.0 /100WBC 11/11/23 14:35 PT 13.20 SECONDS (12.1-14.9) 11/11/23 14:35 INR 0.97 (0.8-1.2) 11/11/23 14:35 D-Dimer 0.32 ug/mLFEU (0-0.59) 11/11/23 14:35 Sodium 137 mmol/L (136-145) 11/11/23 14:35 Potassium 4.2 mmol/L (3.5-5.1) 11/11/23 14:35 Chloride 104 mmol/L (98-107) 11/11/23 14:35 Carbon Dioxide 22 mmol/L (22-29) 11/11/23 14:35 Anion Gap 15.2 (5-19) 11/11/23 14:35 BUN 14 mg/dL (6-20) 11/11/23 14:35 Creatinine 0.9 mg/dL (0.7-1.2) 11/11/23 14:35 GFR Calculation 92.5 mL/min (90-130) 11/11/23 14:35 Glucose 114 mg/dL (65-115) 11/11/23 14:35 Calculated Osmolality 285 mOsm/kg (285-295) 11/11/23 14:35 Calcium 9.0 mg/dL (8.5-10.5) 11/11/23 14:35 Total Bilirubin 0.2 mg/dL (0.15-1.2) 11/11/23 14:35 AST 14 U/L (0-40) 11/11/23 14:35 ALT 17 U/L (0-41) 11/11/23 14:35 Alkaline Phosphatase 104 U/L (40-130) 11/11/23 14:35 Troponin T Baseline < 6 ng/L (0-15) 11/11/23 14:35 Total Protein 6.5 g/dL (6.6-8.7) L 11/11/23 14:35 Albumin 3.9 g/dL (3.5-5.2) 11/11/23 14:35 Globulin 2.6 g/dL (1.3-4.6) 11/11/23 14:35 Lipase 42 U/L (13-60) 11/11/23 14:35 All radiology interpretation(s) finalized by discharge EKG Data EKG 1: I personally reviewed and interpreted this EKG as follows: EKG interpretation date: 11/11/23 EKG interpretation time: 13:58 Interpretation: nsr hr [address] or t wave abnormalities qrs 80 qtc 428 EKG 2: I personally reviewed and interpreted this EKG as follows: EKG interpretation date: 11/11/23 EKG interpretation time: 15:31 Interpretation: nsr hr [address] or t wave abnormalities qrs 88 qtc 437 Discharge Plan Discharge Patient Disposition: Left Against Medical Advice Clinical Impression: Chest pain Condition: Stable Prescriptions: No Action metoprolol succinate 50 mg tablet extended release 24 hr 50 mg PO DAILY Qty: 90 1RF omeprazole 40 mg capsule,delayed release(DR/EC) 40 mg PO DAILY Qty: 30 0RF valsartan 160 mg tablet 160 mg PO DAILY Referrals: Ángela Birmingham MD [Primary Care Provider] - Coding Level of Care Code ED [employer] As[employer]er for Chg Vipin
[2023-11-11 14:05] VITALS: BP 147/69; PULSE 67; RESP 18; TEMP 36.8; O2SAT 99
[2023-11-11 14:26] VITALS: RESP 22; O2SAT 100
[2023-11-11] MEDS: HYDROmorphone 1 mg/mL INJ 1 mL IVP (14:26)
[2023-11-11 14:55] LABS: Basophils # 0.1 10^3/uL (0.0-0.1); Basophils % 1.8 %; Eosinophils # 0.6 10^3/uL (0.0-0.8); Eosinophils % 11.4 %; Hematocrit 42.5 % (37-53); Lymphocytes # 1.3 10^3/uL (0.8-4.8); Lymphocytes % 25.9 %; Mean Corpuscular HGB Conc 34.4 g/dL (30-55); Mean Corpuscular Hemoglobin 29.9 pg (27-33); Mean Corpuscular Volume 87.1 fl (82-101); Mean Platelet Volume 9.1 fL (7.4-10.4); Monocytes # 0.4 10^3/uL (0.2-0.9); Monocytes % 7.9 %; Neutrophils # 2.69 10^3/uL (1.8-7.7); Neutrophils % 52.8 %; Nucleated Red Blood Cells % 0 %; Platelet Count 376 10^3/cmm (157-399); Red Blood Count 4.88 10^6/uL (3.85-5.65); White Blood Count 5.09 10^3/uL (3.29-11.43)
[2023-11-11 15:05] VITALS: BP 125/101; PULSE 60; RESP 18; O2SAT 99
[2023-11-11 15:14] LABS: INR 0.97 (0.8-1.2)
[2023-11-11 15:17] LABS: D Dimer 0.32 ug/mLFEU (0-0.59)
[2023-11-11 15:18] LABS: Alanine Aminotransferase 17 U/L (0-41); Albumin Level 3.9 g/dL (3.5-5.2); Alkaline Phosphatase 104 U/L (40-130); Aspartate Amino Transferase 14 U/L (0-40); Blood Urea Nitrogen 14 mg/dL (6-20); Carbon Dioxide 22 mmol/L (22-29); Chloride 104 mmol/L (98-107); Creatinine Clr Calc Pharmacy 130.7816; Globulin 2.6 g/dL (1.3-4.6); Glomerular Filtration Rate 92.5 mL/min (90-130); Glucose 114 mg/dL (65-115); Lipase 42 U/L (13-60); Osmolality Calculated 285 mOsm/kg (285-295); Sodium 137 mmol/L (136-145); Total Bilirubin 0.2 mg/dL (0.15-1.2); Total Protein 6.5 g/dL (6.6-8.7)
[2023-11-11 15:19] LABS: Troponin(5th) Baseline < 6 ng/L (0-15)
[2023-11-11 15:20] LABS: Anion Gap 15.2 (5-19); Potassium 4.2 mmol/L (3.5-5.1)
--- NOTE | 2023-11-11 15:31 | ECG_ITS ---
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 Measurements Intervals [place] Rate: 60 P: 29 [place]: 192 QRS: 26 QRSD: 88 T: 34 QT: 436 QTc: 437 Interpretive Statements SINUS RHYTHM SEPTAL MYOCARDIAL INFARCTION , OF INDETERMINATE AGE [40+ ms Q WAVE IN V1/V2] Diffuse nonspecific T wave changes Compared to ECG 11/11/2023 13:58:02 No significant changes Electronically Signed On 11-11-2023 23:09:40 CDT by Cary Smith M.D. [id number]
[2023-11-11] MEDS: LORazepam 2 mg/mL INJ 10 mL MDV 1 MG IVP (15:38)
[2023-11-11 15:39] VITALS: BP 131/94; PULSE 58; RESP 18; O2SAT 100
[2023-11-11 16:32] VITALS: RESP 16; O2SAT 97
[2023-11-11] MEDS: morphine 4 mg/mL SDV 1 mL IVP (16:32)
[2023-11-11 16:33] VITALS: BP 134/106; PULSE 66; RESP 16; O2SAT 98
[2023-11-11 17:08] LABS: Troponin 5 2HR 6.46 ng/L (0-15); Troponin 5 2HR Delta 0.46001 ABS# (0-10)
== END 2023-11-11 16:49 | disposition left against medical advice (07) ==
PROVIDERS: Emergency Provider Emergency Medicine; PCP Family Medicine
DX: R07.9 Chest pain, unspecified (principal); Z53.21 Procedure and treatment not carried out due to patient leaving prior to being seen by health care provider; I10 Essential (primary) hypertension
CPT/HCPCS: 36415; 71045; 80053; 83690; 84484; 85025; 85378; 85610; 93005; 96374; 96375; 99285; J1170; J2060; J2270

== ENCOUNTER 2023-12-17 11:41 | Emergency (ER) | payer SELFPAY ==
[2023-12-17] VITALS (7 sets, daily range): BP systolic 121–148; BP diastolic 82–103; PULSE 90–104; RESP 18–25; TEMP 36.7; O2SAT 95–98; BMI 29.1
--- NOTE | 2023-12-17 11:53 | ED_ITS ---
HPI - Animal Bite 2 General: Chief Complaint: Animal Bite Stated Complaint: Snake Bite Time Seen by Provider: 12/17/23 11:42 Source: patient and EMS Mode of arrival: EMS Limitations: no limitations History of Present Illness: 43-year-old male who was bit by a copper head snake at 1030 today on the right wrist patient called EMS they applied a tourniquet at 1045 I did remove the tourniquet. He has some pain at the site and slight swelling denies any shortness of breath has no other complaints Associated symptoms: Deny chills, fever(s) or headache(s) Review of Systems 2 Const: Denies: fever(s), chills, body aches or change in appetite ENMT: Denies: throat pain or dental pain Card: Denies: chest pain Resp: Denies: dyspnea GI: Denies: abdominal pain, nausea, vomiting or diarrhea Musc: Reports: extremity pain and extremity swelling; Denies: neck pain or back pain Skin/Breast: Denies: rash Neuro: Denies: headache(s) PFSH ED 2 PFSH: Medical History Family history of early CAD father had mi at 38 Hypertension Surgical History History of carpal tunnel release of both wrists History of cholecystectomy History of appendectomy Family History Father Family history of premature coronary artery disease CAD (coronary artery disease) Diabetes Hypertension Mother Stroke Diabetes Hypertension Grandmother Dementia Denies family history of Chronic kidney disease (CKD) Social History Smoking and tobacco/nicotine status: never used tobacco/nicotine Alcohol intake: current Alcohol intake frequency: few times a month Substance/Drug Use: never Household members: spouse Marital status: Current occupational status: employed 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 Exam 2 Const: COMMON NORMALS: no acute distress, patient oriented x3 and healthy appearing HENMT: COMMON NORMALS: normocephalic and atraumatic HEAD & SCALP: n ormocephalic and atraumatic Eye: COMMON NORMALS: Equal, round and reactive pupils present PUPIL: Yes Equal, round and reactive pupils present Neck/C-Spine: COMMON NORMALS: full ROM and supple Chest: COMMONS NORMALS: normal inspection of the chest Resp: COMMON NORMALS: normal respiratory effort Cardio: COMMON NORMALS: regular rate, regular rhythm and No murmurs present (Cardio) RATE: regular rate RHYTHM: regular rhythm Extremity: COMMON NORMALS: full ROM NARRATIVE EXTREMITY EXAM: Sting bite noted to right wrist some slight erythema and swelling Neuro: COMMON NORMALS: patient oriented x3, moves all extremities and no focal motor deficits Psych: COMMON NORMALS: mental status grossly normal, Normal thought process present and cooperative THOUGHT PROCESS: Normal thought process present Skin: COMMON NORMALS: no rashes or lesions noted and no wounds GENERAL SKIN EXAM: no rashes or lesions noted Course 2 Vital Signs: Vital signs: Vital Signs Temperature 98.1 F 12/17/23 11:41 Pulse Rate 90 12/17/23 13:23 Respiratory Rate 18 12/17/23 13:32 Blood Pressure 121/82 12/17/23 13:34 Pulse Oximetry 95 12/17/23 14:42 Oxygen Delivery Me thod Room Air 12/17/23 14:42 MDM - Animal Bite Medical Decision Making Patient presents here after snake bite to his right wrist he is observed here for over 3 hours he had minimal progression of swelling no swelling past his elbow he does not require antivenom he is feeling improved here I feel he is stable for discharge we will prescribe him pain medicine for home he is to follow-up his PCP return if worsening he understands agrees to plan Medical Records I reviewed the patient's medical records. Lab Data I reviewed the patient's lab results. 12/17/23 12:00 12/17/23 12:00 Laboratory Results WBC 12.53 10^3/uL (3.29-11.43) H 12/17/23 12:00 RBC 5.14 10^6/uL (3.85-5.65) 12/17/23 12:00 Hgb 15.40 g/dL (11.27-16.99) 12/17/23 12:00 Hct 45.2 % (37-53) 12/17/23 12:00 MCV 87.9 fl (82-101) 12/17/23 12:00 MCH 30.0 pg (27-33) 12/17/23 12:00 MCHC 34.1 g/dL (30-55) 12/17/23 12:00 RDW 13.1 % (12.1-15.1) 12/17/23 12:00 Plt Count 309 10^3/cmm (157-399) 12/17/23 12:00 MPV 9.0 fL (7.4-10.4) 12/17/23 12:00 Neut % (Auto) 89.2 % 12/17/23 12:00 Lymph % (Auto) 5.2 % 12/17/23 12:00 [place] % (Auto) 4.5 % 12/17/23 12:00 Eos % (Auto) 0.3 % 12/17/23 12:00 Baso % (Auto) 0.4 % 12/17/23 12:00 Neut # (Auto) 11.18 10^3/uL (1.8-7.7) H 12/17/23 12:00 Lymph # (Auto) 0.7 10^3/uL (0.8-4.8) L 12/17/23 12:00 [place] # (Auto) 0.6 10^3/uL (0.2-0.9) 12/17/23 12:00 Eos # (Auto) 0.0 10^3/uL (0.0-0.8) 12/17/23 12:00 Baso # (Auto) 0.1 10^3/uL (0.0-0.1) 12/17/23 12:00 Nucleated RBC % (auto) 0 % 12/17/23 12:00 Nucleated RBCs # 0.0 /100WBC 12/17/23 12:00 PT 14.10 SECONDS (12.1-14.9) 12/17/23 12:00 INR 1.05 (0.8-1.2) 12/17/23 12:00 Sodium 135 mmol/L (136-145) L 12/17/23 12:00 Potassium 3.7 mmol/L (3.5-5.1) 12/17/23 12:00 Chloride 100 mmol/L (98-107) 12/17/23 12:00 Carbon Dioxide 19 mmol/L (22-29) L 12/17/23 12:00 Anion Gap 19.7 (5-19) H 12/17/23 12:00 BUN 20 mg/dL (6-20) 12/17/23 12:00 Creatinine 1.4 mg/dL (0.7-1.2) H 12/17/23 12:00 GFR Calculation 55.6 mL/min (90-130) L 12/17/23 12:00 Glucose 189 mg/dL (65-115) H 12/17/23 12:00 Calculated Osmolality 288 mOsm/kg (285-295) 12/17/23 12:00 Calcium 9.3 mg/dL (8.5-10.5) 12/17/23 12:00 Total Bilirubin 0.7 mg/dL (0.15-1.2) 12/17/23 12:00 AST 22 U/L (0-40) 12/17/23 12:00 ALT 32 U/L (0-41) 12/17/23 12:00 Alkaline Phosphatase 110 U/L (40-130) 12/17/23 12:00 Total Protein 7.3 g/dL (6.6-8.7) 12/17/23 12:00 Albumin 4.6 g/dL (3.5-5.2) 12/17/23 12:00 Globulin 2.7 g/dL (1.3-4.6) 12/17/23 12:00 No radiology studies performed this visit Discharge Plan Discharge Patient Disposition: Home Clinical Impression: Snake bite Condition: Stable Prescriptions: New hydrocodone-acetaminophen 5-325 mg tablet 1 tab PO Q6H PRN (Reason: pain) Qty: 14 0RF No Action metoprolol succinate 50 mg tablet extended release 24 hr 50 mg PO DAILY Qty: 90 1RF omeprazole 40 mg capsule,delayed release(DR/EC) 40 mg PO DAILY Qty: 30 0RF valsartan 160 mg tablet 160 mg PO DAILY Discharge Orders: Discharge ED (Routine); Ordered 12/17/23 Ordered By: Elena Wiggins Referrals: Ángela Birmingham MD [Primary Care Provider] - 4-7 days Discharge Diet: Advance as tolerated Discharge Activity: Resume usual activity Patient Instructions: Snake Bite (ED) Stand Alone Forms: Work/School Release Coding Level of Care Code ED Thumb Sewer for Naveeng Vipin
[2023-12-17] MEDS: morphine 4 mg/mL SDV 1 mL IVP (11:57)
[2023-12-17] MEDS: ondansetron 2 mg/ML SDV 2 mL 4 MG IVP (11:57)
--- NOTE | 2023-12-17 12:04 | PC.NURSE ---
tourniquet removed by Dr. Wiggins on pt arrival to ER.
[2023-12-17 12:10] LABS: Basophils # 0.1 10^3/uL (0.0-0.1); Basophils % 0.4 %; Eosinophils % 0.3 %; Hematocrit 45.2 % (37-53); Lymphocytes # 0.7 10^3/uL (0.8-4.8); Lymphocytes % 5.2 %; Mean Corpuscular HGB Conc 34.1 g/dL (30-55); Mean Corpuscular Volume 87.9 fl (82-101); Monocytes # 0.6 10^3/uL (0.2-0.9); Monocytes % 4.5 %; Neutrophils # 11.18 10^3/uL (1.8-7.7); Neutrophils % 89.2 %; Nucleated Red Blood Cells % 0 %; Platelet Count 309 10^3/cmm (157-399); Red Blood Count 5.14 10^6/uL (3.85-5.65); Red Cell Distribution Width 13.1 % (12.1-15.1); White Blood Count 12.53 10^3/uL (3.29-11.43)
[2023-12-17 12:22] LABS: INR 1.05 (0.8-1.2)
[2023-12-17 12:29] LABS: Alanine Aminotransferase 32 U/L (0-41); Albumin Level 4.6 g/dL (3.5-5.2); Alkaline Phosphatase 110 U/L (40-130); Anion Gap 19.7 (5-19); Aspartate Amino Transferase 22 U/L (0-40); Blood Urea Nitrogen 20 mg/dL (6-20); Calcium 9.3 mg/dL (8.5-10.5); Carbon Dioxide 19 mmol/L (22-29); Chloride 100 mmol/L (98-107); Creatinine Clr Calc Pharmacy 83.1919; Globulin 2.7 g/dL (1.3-4.6); Glomerular Filtration Rate 55.6 mL/min (90-130); Glucose 189 mg/dL (65-115); Osmolality Calculated 288 mOsm/kg (285-295); Potassium 3.7 mmol/L (3.5-5.1); Sodium 135 mmol/L (136-145); Total Bilirubin 0.7 mg/dL (0.15-1.2); Total Protein 7.3 g/dL (6.6-8.7)
[2023-12-17] MEDS: HYDROmorphone 1 mg/mL INJ 1 mL IVP (13:32)
--- NOTE | 2023-12-17 13:35 | PC.NURSE ---
increased swelling noted to KARLOS, acute swelling marked by this nurse, Dr. Wiggins notified of findings.
== END 2023-12-17 15:13 | disposition home or self-care (01) ==
PROVIDERS: Emergency Provider Emergency Medicine; PCP Family Medicine
DX: T63.091A Toxic effect of venom of other snake, accidental (unintentional), initial encounter (principal); I10 Essential (primary) hypertension
CPT/HCPCS: 80053; 85025; 85610; 96374; 96375; 99284; J1170; J2270; J2405

== ENCOUNTER → 2024-10-28 10:14 | Outpatient (BNVA) | payer BC, SELFPAY | PROVIDERS: PCP Family Medicine; Visit Provider Family Medicine | DX: S49.91XA Unspecified injury of right shoulder and upper arm, initial encounter (principal); X58.XXXA Exposure to other specified factors, initial encounter | CPT/HCPCS: 73030 ==

== ENCOUNTER 2024-11-01 13:36 | Outpatient (CLI) | payer BC, SELFPAY | END 2024-11-01 13:37 | disposition home or self-care (01) | LOC: SPT 13:37 | PROVIDERS: PCP Family Medicine; Visit Provider Student in an Organized Health Care Education/Training Program | DX: Z46.89 Encounter for fitting and adjustment of other specified devices (principal); S49.91XD Unspecified injury of right shoulder and upper arm, subsequent encounter; S43.50XD Sprain of unspecified acromioclavicular joint, subsequent encounter; W55.22XD Struck by cow, subsequent encounter | CPT/HCPCS: A4565 ==

== ENCOUNTER → 2025-05-17 09:39 | Outpatient (BNVA) | payer BC, SELFPAY | PROVIDERS: PCP Family Medicine; Visit Provider Family Medicine | DX: I10 Essential (primary) hypertension (principal) | CPT/HCPCS: 80053; 80061 ==

== ENCOUNTER 2025-06-15 16:46 | Emergency (ER) | payer OTHER, SELFPAY ==
--- NOTE | 2025-06-15 16:52 | XRR_ITS ---
PROCEDURE INFORMATION: Exam: XR Right Shoulder Exam date and time: 06/15/2025 5:11 PM Age: 44 years old Clinical indication: Injury or trauma; Fall; Blunt trauma (contusions or hematomas); Shoulder; Right TECHNIQUE: Imaging protocol: Radiologic exam of the right shoulder. Views: 2 or more views. COMPARISON: CR XR shoulder RT min 2V* [id number] 10/28/2024 10:23 AM FINDINGS: Bones/joints: No acute fracture or dislocation. Prominent right AC joint space, similar to prior. Soft tissues: Normal. XR/XR shoulder RT min 2V* [id number] IMPRESSION: No acute fracture or dislocation.
[2025-06-15 16:53] VITALS: BP 150/122; PULSE 66; RESP 17; TEMP 36.6; O2SAT 98; BMI 29.1
--- NOTE | 2025-06-15 17:27 | ED_ITS ---
HPI - Extremity Problem General: Chief complaint: Extremity Injury, Upper Stated complaint: Rt shoulder inj Time Seen by Provider: 06/15/25 16:57 History of Present Illness: Patient is 44-year-old male with history of hypertension. He reports to the emergency room with right shoulder pain. Patient was moving a box above his head, and felt a pop in his right shoulder. He rates the pain high. This occurred just prior to arrival. He cannot abduct his shoulder. Admits to previous right shoulder injury. He does work full-time. Confirmed his allergies. Associated symptoms: Deny chest pain or fever(s) Related Data Previous Rx's ?Medication ?Instructions ?Recorded metoprolol succinate 50 mg 50 mg PO DAILY #90 tabs 02/28 tablet,extended release 24 hr valsartan 160 mg tablet 160 mg PO DAILY #90 tabs 02/28 methocarbamol 750 mg tablet 750 mg PO Q8H PRN muscle s pasm #30 06/15/25 tabs Allergies Allergy/AdvReac Type Severity Reaction Status Date / Time ketorolac (From Toradol) Allergy HIVES Verified 06/13/25 10:02 tramadol Allergy HIVES Verified 06/13/25 10:02 Review of Systems General: Reports: 10 or more systems reviewed and unremarkable except in HPI and below Const: Denies: fever(s), chills or body aches Card: Denies: chest pain or orthopnea Resp: Denies: dyspnea, productive cough or wheezing GI: Denies: abdominal pain, nausea or vomiting Musc: Reports: joint pain, joint swelling, joint stiffness and limited range of motion Skin/Breast: Denies: changes in skin color or dry skin Neuro: Denies: numbness in extremities or weakness in extremities Psych: Denies: anxiety Thai/Lymph: Denies: easy bruising or easy bleeding PFSH ED PFSH: Medical History (Updated 06/15/25 @ 23:58 by MILDRED Cooper) Family history of early CAD father had mi at 38 Hypertension Surgical History History of carpal tunnel release of both wrists History of cholecystectomy History of appendectomy Family History Father Family history of premature coronary artery disease CAD (coronary artery disease) Diabetes Hypertension Mother Stroke Diabetes Hypertension Grandmother Dementia Denies family history of Chronic kidney disease (CKD) Social History Smoking and tobacco/nicotine status: never used tobacco/nicotine Alcohol intake: current Alcohol intake frequency: few times a month Substance/Drug Use: never Household members: spouse Marital status: Current occupational status: employed 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 Const: COMMON NORMALS: no acute distress, patient oriented x3 and healthy appearing HENMT: COMMON NORMALS: normocephalic and atraumatic HEAD & SCALP: normocephalic and atraumatic Eye: COMMON NORMALS: Equal, round and reactive pupils present PUPIL: Yes Equal, round and reactive pupils present Neck/C-Spine: COMMON NORMALS: full ROM and supple Chest: COMMONS NORMALS: normal inspection of the chest Resp: COMMON NORMALS: normal respiratory effort Cardio: COMMON NORMALS: regular rate, regular rhythm and No murmurs present (Cardio) RATE: regular rate RHYTHM: regular rhythm GI: COMMON NORMALS: Normal to inspection, nondistended, normoactive bowel sounds present, Soft to palpation, non-tender and No hepatosplenomegaly present PALPATION: Yes Soft to palpation and Yes No hepatosplenomegaly present : COMMON NORMALS: Yes no CVA tenderness BLADDER/KIDNEY EXAM: Yes no CVA tenderness Back/Pelvis: COMMON NORMALS: no CVA tenderness Extremity: COMMON NORMALS: full ROM NARRATIVE EXTREMITY EXAM: Right upper extremity: Range of motion stable to 90 degrees, then range of motion unable to be performed with full abduction. This was secondary to pain. Empty can test was positive lateral. Negative anterior. Pain noted over ITP insertion point. Neuro: COMMON NORMALS: patient oriented x3, moves all extremities and no focal motor deficits Psych: COMMON NORMALS: mental status grossly normal, Normal thought process present and cooperative THOUGHT PROCESS: Normal thought process present Skin: COMMON NORMALS: no rashes or lesions noted and no wounds GENERAL SKIN EXAM: no rashes or lesions noted Course Vital Signs: Vital signs: Vital Signs Temperature 97.8 F 06/15/25 16:53 Pulse Rate 66 06/15/25 16:53 Respiratory Rate 17 06/15/25 16:53 Blood Pressure 150/122 06/15/25 16:53 Pulse Oximetry 98 06/15/25 16:53 Oxygen Delivery Me thod Room Air 06/15/25 16:53 MDM - Extremity (Nontraumatic) Medical Decision Making Patient is a 44-year-old male with popping to his right shoulder after lifting a box above his head. He does not have any abnormality on x-ray. Encouraged him to follow-up with orthopedics, for possible MRI. He feels improvement after Norflex. Allergies were confirmed to Toradol. All of him and his 's questions were answered to their satisfaction Medical Records I reviewed the patient's medical records. Lab Data I reviewed the patient's lab results. Radiology Impressions Shoulder X-Ray 06/15/25 16:52 IMPRESSION: No acute fracture or dislocation. All radiology interpretation(s) finalized by discharge Discharge Plan Discharge Patient Disposition: Home Clinical Impression: Acute pain of right shoulder, Acromioclavicular (AC) joint injury Condition: Stable Prescriptions: New methocarbamol 750 mg tablet 750 mg PO Q8H PRN (Reason: muscle spasm) Qty: 30 0RF No Action metoprolol succinate 50 mg tablet extended release 24 hr 50 mg PO DAILY Qty: 90 0RF valsartan 160 mg tablet 160 mg PO DAILY Qty: 90 0RF Discharge Orders: Discharge ED (Routine); Ordered 06/15/25 Ordered By: Meenakshi Clark Referrals: Mark Gambino MD [Physician, Orthopedics] - 4-7 days Ángela Birmingham MD [Primary Care Provider, Family Practice] Discharge Diet: Usual diet Discharge Activity: Limit activity as instructed Patient Instructions: Rotator Cuff Injury (ED), Rotator Cuff Injury Exercises (DC), Patient Portal & Joycelyn Instructions Activity Restrictions/Additional Instructions: - Ice to right shoulder - Tylenol and Profen taken together helps best for pain - At the pharmacy: Methocarbamol/Robaxin a powerful muscle relaxer. Use as dir ected. Thank you for choosing [facility] for your healthcare needs today. You have been screened and evaluated and felt safe for discharge. Health conditions do change or evolve sometimes and as such it is important that you follow up with your Primary Doctor to be re checked, 3-5 days is a general good time frame for follow up. You are always welcome to return to the ED for re assessment if your symptoms are worsening or you have new concerns Stand Alone Forms: Work/School Release Print Language: Arabic Coding Level of Care Code ED Slabber Light for Gogo Lew
[2025-06-15] MEDS: orphenadrine 30 mg/mL Inj 2 mL 60 MG IM (17:42)
--- OUTSIDE RECORDS SUMMARY | 2025-06-15 20:50 | XMS_ITS | Patient Health Record ---
Author Organization [facility] Address [address] [place] [address] Care Team Providers Care Sheet Taker Name Role Phone Cierra Stanley Primary Care Provider [phone] Allergies No Known Allergies Reason For Referral No Information Medications Medication SIG (Take, Route, Frequency, Duration) Notes Start Date End Date Status Ibuprofen 200 MG Tablet 2 tablets with f ood or milk as needed Orally every 6 hrs Active Aspirin 325 MG Tablet 1 tablet Orally On ce a day Active Aspirin 81 MG Tablet Delayed Release 1 tablet Orally Once a day; Duration: 30 day(s) 10/17/2021 Active Atorvastatin Calcium 40 MG Tablet TAKE 1 TABLET BY MOUTH ONCE DAILY AT BEDTIME FOR 30 DAYS; Duration: 30 Active Nitroglycerin 0.4 MG Tablet Sublingual 1 tab under tongue every 5 minutes; may repeat up to 3 times Sublingual Once a day; Duration: 30 days 10/17/2021 Active Meloxicam 15 MG Tablet TAKE 1 TABLET BY MOUTH ONCE DAILY (DO NOT TAKE ANY OTHER NSAIDS WITH THIS); Duration: 30 Active Valsartan 160 MG Tablet Take 1 tablet by mouth once daily; Duration: 30 Active HYDROcodone-Acetaminophen 5-325 MG Tablet 1 tablet as needed Orally every 6 hrs Active Social History Tobacco Use: Social History Observation Description Date Details (start date - stop date) Never Smoker NA - NA Social History Depression Screening Social Info Question Answer Notes PHQ-9 Little interest or pleasure in doing thin gs Not at all Feeling down, depressed, or hopeless Not at all Trouble falling or staying asleep, or sleeping t oo much Not at all Feeling tired or having little energy Not at all Poor appetite or overeating Not at all Feeling bad about yourself, or that you are a failure, or have let yourself or your family down Not at all Trouble concentrating on thi ngs, such as reading the newspaper or watching television Not at all Moving or speaking so slowly that other people could have noticed. Or the opposite ? being so fidgety or restless that you have been moving around a lot more than usual Not at all Thoughts that you would be b ruben off , or of hurting yourself in some way Not at all Total Score 0 Drugs/Alcohol: Social Info Question Answer Notes Alcohol Screen (Audit-C) Did you have a drink containing alcohol in the past year? Yes How often did you have a drink containing alcohol in the past year? Monthly or less (1 point) How many drinks did you have on a typical day when you were drinking in the past year? 1 or 2 drinks (0 point) How often did you have 6 or more drinks on one occasion in the past year? Never (0 point) Points 1 Interpretation Negative Drugs Have you used drugs other than those for medical reasons in the past 12 months? No Caffeine Intake: more than 4 cups per day Tobacco Use: Social Info Question Answer Notes xTobacco Use/Smoking Are you a nonsmoker Tobacco use other than smoking: Are you an other tobacco user? No Additional Details Category Social Info Options Details Drugs/Alcohol: Do you smoke marijuana? De nies Do you drink alcohol? Yes, occas sionally Section Notes: 10/17/2021 Problems Problem Type SNOMED Code ICD Code Onset Dates Problem Status W/U Status Risk Notes Problem Chronic pain (91735057) Other chronic pain (G89.29) Active confirmed Problem Essential hypertension (23844944) Essential hypertension (I10) Active confirmed Problem Enlargement of thyroid (6939907) Enlarged thyroid gland (E04.9) Active confirmed Plan Of Treatment No Information Insurance Providers Payer Name Payer Address Payer Phone Subscriber Number Group Number Insured Name Patient Relationship to Insured Coverage Start Date Coverage End Date [employer] [address] [place] [phone] [id number] Delvin Thomas Self - patient is the insured 2 Medical (General) History Medical History History ICD Code bilateral carpal tunnel surgery hypertension herniated disc Surgical History Surgery Date(Month/Year) appendectomy 2007 cholecystectomy at [facility] 2019
--- NOTE | 2025-06-16 07:28 | DCPLANNER ---
messaged ortho for er f/u
== END 2025-06-15 18:58 | disposition home or self-care (01) ==
PROVIDERS: Emergency Provider Physician Assistant; PCP Family Medicine
DX: S49.81XA Other specified injuries of right shoulder and upper arm, initial encounter (principal); I10 Essential (primary) hypertension; X58.XXXA Exposure to other specified factors, initial encounter
CPT/HCPCS: 73030; 96372; 99284; J2360